=== PATIENT | female | born 1995 | race Caucasian/White ===

== ENCOUNTER 2021-05-29 11:53 | Emergency (ER) | payer BC ==
[2021-05-29] MEDS ORDERED: Ondansetron 4 MG/2 ML SDV IVPUSH ONE (12:06)
[2021-05-29] MEDS ORDERED: HYDROmorphone 0.5 MG/0.5 ML Syringe IVPUSH ONE (12:07)
[2021-05-29] MEDS ORDERED: Sodium Chloride 0.9% 1,000 ML IV SCH (12:15)
[2021-05-29] MEDS: Sodium Chloride 0.9% 10 ML Syringe FLUSH PRN ×2 (12:20→12:47)
[2021-05-29] MEDS ORDERED: Iopamidol 612 MG/ML 100 ML Bottle IVPUSH ONE (12:36)
== END 2021-05-29 13:55 | disposition home or self-care (01) ==
LOC: JD.ED 11:53
DX: K52.9 Noninfective gastroenteritis and colitis, unspecified (principal); Z88.1 Allergy status to other antibiotic agents; Z88.0 Allergy status to penicillin; Z72.0 Tobacco use
CPT/HCPCS: 36415; 74177; 80053; 81001; 81025; 83630; 83690; 85025; 86140; 87493; 96374; 96375; 99284; J1170; J2405; J7030; Q9967; 99285

== ENCOUNTER 2021-05-31 16:53 | Inpatient (IN) | payer BC ==
[2021-05-31] MEDS ORDERED: HYDROmorphone 0.5 MG/0.5 ML Syringe IVPUSH ONE (17:35)
[2021-05-31] MEDS ORDERED: Metoclopramide 10 MG/2 ML SDV IVPUSH ONE (17:35)
[2021-05-31] MEDS ORDERED: Dextrose 5%-Lactated Ringers 1,000 ML IV SCH ×2 (17:45→19:30)
[2021-05-31] MEDS ORDERED: Levofloxacin/Dextrose 5%-Water 750 MG in Premix Bag 1 BAG IV ONE (18:08)
[2021-05-31] MEDS: Dextrose 5%-Lactated Ringers 1,000 ML IV SCH (21:20)
[2021-05-31] MEDS ORDERED: traZODone 50 MG Tab PO ONE (21:29)
[2021-05-31] MEDS ORDERED: Ondansetron 4 MG/2 ML SDV IVPUSH PRN (21:34)
[2021-05-31] MEDS ORDERED: ClonazePAM 1 MG Tab PO ONE (21:40)
[2021-05-31] MEDS: HYDROmorphone 0.5 MG/0.5 ML Syringe IVPUSH PRN (22:07)
[2021-06-01] MEDS: HYDROmorphone 0.5 MG/0.5 ML Syringe IVPUSH PRN ×5 (02:41→22:13)
[2021-06-01] MEDS: Dextrose 5%-Lactated Ringers 1,000 ML IV SCH ×2 (04:38→11:44)
[2021-06-01] MEDS: Acetaminophen 325 MG Tab PO PRN ×3 (10:26→20:01)
[2021-06-01] MEDS ORDERED: Ondansetron 8 MG in Sodium Chloride 0.9% 50 ML IV PRN (11:52)
[2021-06-01] MEDS ORDERED: Dextrose 5%-0.45% NaCl 1,000 ML IV SCH (12:00)
[2021-06-01] MEDS ORDERED: Pantoprazole 40 MG Vial IVPUSH ONE (13:00)
[2021-06-01] MEDS ORDERED: buPROPion 150 MG Tab.ER PO SCH (13:00)
[2021-06-01] MEDS: Sertraline 50 MG Tab PO SCH (13:40)
[2021-06-01] MEDS: Dicyclomine 10 MG Cap PO SCH ×3 (13:41→20:12)
[2021-06-01] MEDS: Sodium Chloride 0.45% 1,000 ML IV SCH ×2 (15:27→23:09)
[2021-06-01] MEDS: Levofloxacin/Dextrose 5%-Water 750 MG in Premix Bag 1 BAG IV SCH ×2 (17:55→20:21)
[2021-06-01] MEDS: ClonazePAM 1 MG Tab PO SCH (20:12)
[2021-06-01] MEDS: traZODone 50 MG Tab PO SCH (20:12)
[2021-06-02] MEDS: Sodium Chloride 0.45% 1,000 ML IV SCH ×3 (06:25→23:04)
[2021-06-02] MEDS: Acetaminophen 325 MG Tab PO PRN ×3 (09:49→17:54)
[2021-06-02] MEDS: Dicyclomine 10 MG Cap PO SCH ×3 (09:49→20:39)
[2021-06-02] MEDS: ClonazePAM 1 MG Tab PO SCH ×2 (09:49→20:38)
[2021-06-02] MEDS: Sertraline 50 MG Tab PO SCH (09:50)
[2021-06-02] MEDS: Enoxaparin 40 MG/0.4 ML Syringe SUBCUT SCH (09:50)
[2021-06-02] MEDS ORDERED: Sodium Chloride 0.9% 10 ML Syringe FLUSH PRN (17:58)
[2021-06-02] MEDS: Levofloxacin/Dextrose 5%-Water 750 MG in Premix Bag 1 BAG IV SCH (18:30)
[2021-06-02] MEDS: traZODone 50 MG Tab PO SCH (20:38)
[2021-06-02] MEDS: Ondansetron 4 MG Tab.DIS PO PRN (20:39)
[2021-06-02] MEDS: HYDROmorphone 0.5 MG/0.5 ML Syringe IVPUSH PRN (21:35)
[2021-06-03] MEDS: Sodium Chloride 0.45% 1,000 ML IV SCH ×3 (07:24→23:56)
[2021-06-03] MEDS: buPROPion 150 MG Tab.ER PO SCH (08:52)
[2021-06-03] MEDS: Enoxaparin 40 MG/0.4 ML Syringe SUBCUT SCH (08:52)
[2021-06-03] MEDS: ClonazePAM 1 MG Tab PO SCH ×2 (08:52→20:42)
[2021-06-03] MEDS: BUPROPION 75 MG PO SCH (08:53)
[2021-06-03] MEDS: Dicyclomine 10 MG Cap PO SCH ×3 (08:53→20:41)
[2021-06-03] MEDS: Sertraline 50 MG Tab PO SCH (08:53)
[2021-06-03] MEDS: HYDROmorphone 0.5 MG/0.5 ML Syringe IVPUSH PRN ×3 (08:54→20:42)
[2021-06-03] MEDS ORDERED: Aluminum Hydroxide/Magnesium Hydroxide/Simethicone Susp 30 ML Cup PO ONE (12:31)
[2021-06-03] MEDS: Ondansetron 4 MG Tab.DIS PO PRN (14:48)
[2021-06-03] MEDS: Famotidine 20 MG/2 ML SDV IVPUSH SCH (15:45)
[2021-06-03] MEDS ORDERED: Pantoprazole 40 MG Tab.CR PO SCH (16:00)
[2021-06-03] MEDS: Acetaminophen 325 MG Tab PO PRN (16:19)
[2021-06-03] MEDS: traZODone 50 MG Tab PO SCH (20:41)
[2021-06-04] MEDS: Sodium Chloride 0.45% 1,000 ML IV SCH (08:13)
[2021-06-04] MEDS: HYDROmorphone 0.5 MG/0.5 ML Syringe IVPUSH PRN (08:42)
[2021-06-04] MEDS: Dicyclomine 10 MG Cap PO SCH ×2 (08:43→14:13)
[2021-06-04] MEDS: Sertraline 50 MG Tab PO SCH (08:43)
[2021-06-04] MEDS: buPROPion 150 MG Tab.ER PO SCH (08:43)
[2021-06-04] MEDS: ClonazePAM 1 MG Tab PO SCH (08:43)
[2021-06-04] MEDS: Famotidine 20 MG/2 ML SDV IVPUSH SCH (08:43)
[2021-06-04] MEDS: BUPROPION 75 MG PO SCH (08:44)
[2021-06-04] MEDS: Enoxaparin 40 MG/0.4 ML Syringe SUBCUT SCH (08:51)
[2021-06-04] MEDS: Acetaminophen 325 MG Tab PO PRN (12:09)
== END 2021-06-04 14:30 | DRG 249 ==
LOC: JD.ED 16:53 → JD.MS 19:33 → OBSVTOIN 06-01 11:51
PROVIDERS: ADMIT Pediatrics; ATTEND Pediatrics
DX: A05.9 Bacterial foodborne intoxication, unspecified (principal); K92.1 Melena; N83.201 Unspecified ovarian cyst, right side; Z20.822 Contact with and (suspected) exposure to COVID-19; J45.909 Unspecified asthma, uncomplicated; K59.09 Other constipation; K58.0 Irritable bowel syndrome with diarrhea; F41.0 Panic disorder [episodic paroxysmal anxiety]; F32.9 Major depressive disorder, single episode, unspecified; K57.90 Diverticulosis of intestine, part unspecified, without perforation or abscess without bleeding; F43.10 Post-traumatic stress disorder, unspecified; E61.1 Iron deficiency; Z87.891 Personal history of nicotine dependence; Z88.0 Allergy status to penicillin; Z88.1 Allergy status to other antibiotic agents; Z79.899 Other long term (current) drug therapy
CPT/HCPCS: 36415; 76830; 76830-26; 80053; 81001; 82306; 82607; 82947; 83520; 83540; 83605; 83690; 83735; 84703; 85025; 85652; 86140; 86256; 87040; 87045; 87046; 87899; 96365; 96366; 96375; 96376; 99285-25; A9270-GY; C9113; G0378; J1170; J1650; J1956; J2765; J3490; J7121; U0002

== ENCOUNTER 2021-12-01 08:54 | Emergency (ER) | payer BC ==
[2021-12-01] MEDS ORDERED: HYDROmorphone 0.5 MG/0.5 ML Syringe IVPUSH ONE (11:13)
[2021-12-01] MEDS ORDERED: Ondansetron 4 MG/2 ML SDV IVPUSH ONE (11:13)
[2021-12-01] MEDS ORDERED: Sodium Chloride 0.9% 1,000 ML IV STA (11:13)
[2021-12-01] MEDS ORDERED: Ketorolac 30 MG/ML SDV IVPUSH ONE (13:03)
== END 2021-12-01 13:31 | disposition home or self-care (01) ==
LOC: JD.ED 08:54
DX: O03.9 Complete or unspecified spontaneous abortion without complication (principal); Z88.0 Allergy status to penicillin; Z88.1 Allergy status to other antibiotic agents; Z86.16 Personal history of COVID-19
CPT/HCPCS: 36415; 76817; 80053; 81001; 84702; 85025; 86900; 86901; 96361; 96374; 96375; 99284; J1170; J1885; J2405; J7030

== ENCOUNTER 2021-12-03 21:55 | Emergency (ER) | payer BC | END 2021-12-04 02:24 | disposition home or self-care (01) | LOC: JD.ED 21:55 | DX: S69.91XA Unspecified injury of right wrist, hand and finger(s), initial encounter (principal); Z88.0 Allergy status to penicillin; Z88.8 Allergy status to other drugs, medicaments and biological substances; Z86.16 Personal history of COVID-19 | CPT/HCPCS: 73130-26-RT; 73130-RT; 99282; 99283 ==

== ENCOUNTER 2023-01-20 18:48 | Emergency (ER) | payer BC, MEDICAID ==
[2023-01-20 19:21] LABS: BASOPHILS ABSOLUTE AUTO 0.1 K/mm3 (0.0-0.2); BASOPHILS PERCENT AUTO 0.9 % (0.0-1.0); EOSINOPHILS ABSOLUTE AUTO 0.2 K/mm3 (0.0-0.4); EOSINOPHILS PERCENT AUTO 3.4 % (0.0-6.0); HEMATOCRIT 38.6 % (37.0-47.0); HEMOGLOBIN 12.9 gm/dl (12.0-16.0); IMMATURE GRAN ABSOLUTE AUTO 0.01 K/mm3 (0.00-0.05); IMMATURE GRAN PERCENT AUTO 0.2 % (0.0-0.4); LYMPHOCYTES ABSOLUTE AUTO 2.3 K/mm3 (1.0-4.8); LYMPHOCYTES PERCENT AUTO 38.8 % (24.0-44.0); MEAN CORPUSCULAR HEMOGLOBIN 30.4 pg (28.0-32.0); MEAN CORPUSCULAR HGB CONC 33.4 g/dl (32.0-36.0); MEAN PLATELET VOLUME 10.7 fl (9.4-12.3); MONOCYTES ABSOLUTE AUTO 0.5 K/mm3 (0.0-0.8); MONOCYTES PERCENT AUTO 9.1 % (0.0-8.0); NEUTROPHILS ABSOLUTE AUTO 2.8 K/mm3 (1.8-7.7); NEUTROPHILS PERCENT AUTO 47.6 % (41.0-71.0); PLATELET COUNT,PLT 206 K/mm3 (150-400); RED BLOOD CELL COUNT 4.24 M/mm3 (4.10-5.30); WHITE BLOOD CELL COUNT,WBC 5.83 K/mm3 (3.9-11.3)
[2023-01-20] MEDS ORDERED: Sodium Chloride 0.9% 1,000 ML IV ONE (19:42)
[2023-01-20] MEDS ORDERED: Sodium Chloride 0.9% 10 ML Syringe FLUSH PRN (20:31)
[2023-01-20] MEDS ORDERED: Acetaminophen/HYDROcodone 325-5 MG Tab PO ONE (20:35)
== END 2023-01-20 21:30 | disposition home or self-care (01) ==
LOC: JD.ED 18:48
DX: N93.9 Abnormal uterine and vaginal bleeding, unspecified (principal); J45.909 Unspecified asthma, uncomplicated; Z86.16 Personal history of COVID-19; Z88.0 Allergy status to penicillin; Z88.1 Allergy status to other antibiotic agents
CPT/HCPCS: 36415; 76830; 84702; 85025; 86850; 86900; 86901; 99284; A9270; J7030